=== PATIENT | female | born 1970 | race African-American/Black ===

== ENCOUNTER 2024-01-18 18:04 | Observation (INO) | payer OTHER, SELFPAY ==
[2024-01-18] VITALS (18 sets, daily range): BP systolic 105–170; BP diastolic 61–100; PULSE 76–92; RESP 12–36; TEMP 36.8–37.1; O2SAT 93–98; BMI 39.4
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
--- NOTE | 2024-01-18 19:15 | EKG_ITS ---
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
[2024-01-18 19:53] LABS: Add Manual Diff / Slide Review NO; Basophils Absolute Auto 0 /uL (0-100); Basophils Percent Auto 0.7 % (0-2); Eosinophils Absolute Auto 100 /uL (0-450); Eosinophils Percent Auto 1.2 % (2-4); Hematocrit 35.8 % (36-46); Hemoglobin 11.5 g/dL (12.0-16.0); Lymphocytes Absolute Auto 1000 /uL (1100-4500); Lymphocytes Percent Auto 15.8 % (25-40); Mean Corpuscular HGB Conc 32.1 % (30-36); Mean Corpuscular Hemoglobin 27.5 PG (26-34); Mean Corpuscular Volume 85.6 fL (80-100); Monocytes Absolute Auto 700 /uL (0-900); Monocytes Percent Auto 11.1 % (3-14); Neutrophils Absolute Auto 4600 /uL (1500-7000); Neutrophils Percent Auto 71.2 % (50-75); Platelet Count 243 X10^3/uL (150-400); Red Blood Cell Count 4.18 X10^6/uL (4.0-5.2); White Blood Cell Count 6.5 X10^3/uL (4.5-11.0)
[2024-01-18 20:04] LABS: PTT Partial Thromboplastin Tim 32 SECONDS (25.1-36.5)
[2024-01-18 20:14] LABS: Alanine Aminotransferase 30 IU/L (<35); Albumin 3.8 g/dL (3.5-5.0); Albumin Globulin Ratio 1.2 (1.0-2.8); Alkaline Phosphatase 86 U/L (38-126); Aspartate Aminotransferase 40 IU/L (14-36); BUN Creatinine Ratio 18.1 (6-22); Bilirubin Total 0.5 mg/dL (0.2-1.3); Blood Urea Nitrogen 13 mg/dL (7-17); Calcium 8.5 mg/dL (8.4-10.2); Carbon Dioxide 25 mmol/L (22-32); Chloride 106 mmol/L (98-107); Creatine Kinase 157 U/L (30-135); Estimated Glomerular Filt Rate > 60 mL/min (>60); Globulin 3.2 g/dL (1.7-4.1); Glucose 100 mg/dL (70-100); HEMOLYSIS < 15 (0-50); Lipase 37 U/L (23-300); Magnesium 1.8 mg/dL (1.6-2.3); Potassium 3.6 mmol/L (3.4-5.1); Sodium 136 mmol/L (137-145)
[2024-01-18 20:25] LABS: NT-proBNP (BNP-Adult 18+) 98 pg/mL (<125); Troponin I < 0.012 ng/mL (0.01-0.034)
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
[2024-01-18] MEDS: KETOROLAC 30 MG/ML VIAL 15 MG IV (20:40)
[2024-01-18] MEDS: SODIUM CHLORIDE 0.9% FLUSH 10 ML IV (23:53)
[2024-01-18] MEDS: MORPHINE 2 MG/ML INJ IV (23:54)
[2024-01-19 00:05] VITALS: BMI 39.2
--- NOTE | 2024-01-19 00:05 | PC.NURSE ---
Pt. admitted to room 203, from ER. Oriented to her room, call light, bed & TV controls. Encouraged to call for any needs & if she needed to get out of bed to the bathroom. Call light with in reached, will continue plan of care & monitor.
[2024-01-19 02:45] VITALS: BP 130/78; PULSE 69; RESP 18; TEMP 36.8; O2SAT 96
[2024-01-19 02:59] LABS: Add Manual Diff / Slide Review NO; Basophils Absolute Auto 0 /uL (0-100); Basophils Percent Auto 0.6 % (0-2); Eosinophils Absolute Auto 100 /uL (0-450); Eosinophils Percent Auto 1.3 % (2-4); Hematocrit 33.6 % (36-46); Hemoglobin 10.9 g/dL (12.0-16.0); Lymphocytes Absolute Auto 900 /uL (1100-4500); Lymphocytes Percent Auto 19.1 % (25-40); Mean Corpuscular HGB Conc 32.5 % (30-36); Mean Corpuscular Hemoglobin 27.9 PG (26-34); Mean Corpuscular Volume 85.7 fL (80-100); Monocytes Absolute Auto 600 /uL (0-900); Monocytes Percent Auto 13.5 % (3-14); Neutrophils Absolute Auto 3100 /uL (1500-7000); Neutrophils Percent Auto 65.5 % (50-75); Platelet Count 211 X10^3/uL (150-400); Red Blood Cell Count 3.92 X10^6/uL (4.0-5.2); White Blood Cell Count 4.8 X10^3/uL (4.5-11.0)
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
[2024-01-19] MEDS: MORPHINE 2 MG/ML INJ IV ×3 (05:39→13:25)
[2024-01-19 06:00] VITALS: BP 123/83; PULSE 77; RESP 20; TEMP 37.3; O2SAT 95
[2024-01-19 08:00] VITALS: BP 127/83; PULSE 82; RESP 16; TEMP 37.5; O2SAT 96
[2024-01-19] MEDS: ACETAMINOPHEN 325 MG TABLET 650 MG PO ×2 (08:54→18:38)
[2024-01-19] MEDS: SODIUM CHLORIDE 0.9% FLUSH 10 ML IV (08:55)
[2024-01-19 11:33] LABS: Hematocrit 33.2 % (36-46); Hemoglobin 10.9 g/dL (12.0-16.0); Mean Corpuscular HGB Conc 32.8 % (30-36); Mean Corpuscular Hemoglobin 28.1 PG (26-34); Mean Corpuscular Volume 85.6 fL (80-100); Platelet Count 216 X10^3/uL (150-400); Red Blood Cell Count 3.88 X10^6/uL (4.0-5.2); Red Cell Distribution Width 15.8 % (11.6-14.8); White Blood Cell Count 5.2 X10^3/uL (4.5-11.0)
[2024-01-19 12:00] VITALS: BP 118/75; PULSE 78; RESP 16; TEMP 37.7; O2SAT 95
[2024-01-19] MEDS: GABAPENTIN 600 MG TABLET 1800 MG PO ×2 (12:28→18:36)
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
[2024-01-19 15:16] LABS: Hematocrit 34.9 % (36-46); Hemoglobin 11.2 g/dL (12.0-16.0); Mean Corpuscular Hemoglobin 27.4 PG (26-34); Mean Corpuscular Volume 85.8 fL (80-100); Platelet Count 223 X10^3/uL (150-400); Red Blood Cell Count 4.07 X10^6/uL (4.0-5.2); Red Cell Distribution Width 15.7 % (11.6-14.8); White Blood Cell Count 6.7 X10^3/uL (4.5-11.0)
[2024-01-19 16:00] VITALS: BP 102/65; PULSE 86; RESP 16; TEMP 37.1; O2SAT 95
[2024-01-19] MEDS: BACLOFEN 10 MG TABLET PO (16:27)
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
[2024-01-19] MEDS: OXYCODONE IR 5 MG TABLET PO (18:37)
== END 2024-01-19 19:24 | disposition home or self-care (01) ==
LOC: ED 19:24 → AC 22:27
PROVIDERS: Admitting Provider Surgery; Emergency Provider Emergency Medicine; Referring Provider Emergency Medicine; Visit Provider Surgery
DX: S36.030A Superficial (capsular) laceration of spleen, initial encounter (principal); R59.1 Generalized enlarged lymph nodes; M25.512 Pain in left shoulder; M25.571 Pain in right ankle and joints of right foot; M54.9 Dorsalgia, unspecified; V58.0XXA Driver of pick-up truck or van injured in noncollision transport accident in nontraffic accident, initial encounter; Y92.410 Unspecified street and highway as the place of occurrence of the external cause
CPT/HCPCS: 36415; 70450; 71045; 71260; 72125; 73130; 73552; 73610; 73630; 74177; 80053; 82550; 83690; 83735; 83880; 84484; 85025; 85027; 85610; 85730; 93005; 96374; 96375; 96376; 99232; 99285; G0378; J1885; J2270; Q9967